=== PATIENT | male | born 1960 | race Caucasian/White ===

== ENCOUNTER 2017-05-11 17:14 | Emergency (ER) | payer OTHER ==
[2017-05-11 17:42] LABS: BASOPHIL COUNT 0.1 K/uL (0-0.1); EOSINOPHIL (%) 1.3 % (0-5); EOSINOPHIL COUNT 0.2 K/uL (0-0.3); HEMATOCRIT 41.9 % (38.0-50.0); IMMATURE GRANULOCYTE (%) 1.8 % (0.0-0.7); IMMATURE GRANULOCYTE COUNT 0.3 K/uL; INSTRUMENT ABS NEUTROPHIL CT 11.8 K/uL; MCH 31.2 PG (29.0-34.0); MCHC 34.4 G/DL (30.0-36.0); MCV 90.7 FL (86-99); MEAN PLAT.VOLUME 10.6 uM^3 (9.0-12.4); MONOCYTE (%) 7.1 % (3-12); MONOCYTE COUNT 1.2 K/uL (0-0.8); NEUTROPHIL COUNT 11.8 K/uL (1.8-6.4); PLATELET COUNT 333 K/uL (156-360); RBC DIS.WIDTH-CV 14.8 % (11.8-14.6); RBC DIS.WIDTH-SD 49.1 % (39-53); RED BLOOD COUNT 4.62 M/uL (4.00-5.50); WHITE BLOOD COUNT 16.5 K/uL (4.1-10.2)
[2017-05-11 18:32] LABS: AMYLASE 67 IU/L (1-118); CHLORIDE 105 mEq/L (99-109); POTASSIUM 3.8 mEq/L (3.7-5.4); SODIUM 136 mEq/L (136-147)
[2017-05-11 18:34] LABS: GLUCOSE 113 mg/dL (70-99)
[2017-05-11 18:35] LABS: ANION GAP 11 MEQ/L (2-14)
[2017-05-11 18:37] LABS: SERUM ETHYL ALCOHOL < 10 mg/dL
[2017-05-11 18:38] LABS: GFR ESTIMATE (CALCULATED) > 59 mL/min/; UREA NITROGEN (BUN) 18 mg/dL (9-23)
[2017-05-11 18:41] LABS: LIPASE 17 U/L (1.0-51.0)
[2017-05-11] MEDS ORDERED: PERCOCET 5/31 TABLET PO (18:53)
== END 2017-05-11 22:02 | disposition short-term general hospital (02) ==
LOC: TRA 17:14
PROVIDERS: Emergency Medicine
PROC: 0QS7XZZ Reposition Left Upper Femur, External Approach (ICD-10-PCS; principal; 2017-05-11)
DX: S72.092A Other fracture of head and neck of left femur, initial encounter for closed fracture (principal); S32.442A Displaced fracture of posterior column [ilioischial] of left acetabulum, initial encounter for closed fracture; S42.021A Displaced fracture of shaft of right clavicle, initial encounter for closed fracture; S22.31XA Fracture of one rib, right side, initial encounter for closed fracture; V23.4XXA Motorcycle driver injured in collision with car, pick-up truck or van in traffic accident, initial encounter; Y92.410 Unspecified street and highway as the place of occurrence of the external cause; I10 Essential (primary) hypertension; K44.9 Diaphragmatic hernia without obstruction or gangrene; F17.200 Nicotine dependence, unspecified, uncomplicated
CPT/HCPCS: 70450; 71010; 71260; 72125; 72192; 73501; 73502; 74177; 80048; 81003; 82150; 83690; 85025; 86900; 86901; 99281; 99285; G0480; J2405; J3010

== ENCOUNTER 2017-05-16 15:01 | Inpatient (IN) | payer OTHER ==
[~2017-05-16] VITALS: Ht 190.5 cm; Wt 81.2 kg
[~2017-05-16 15:01] MED LIST: PERCOCET 5/31 TABLET PO
[2017-05-16 15:47] VITALS: BP 142/89
[2017-05-16] MEDS ORDERED: ACETAMINOPHEN325 M1 PO (16:01)
[2017-05-16] MEDS ORDERED: LO-DOSE ASPIRIN81 M2 PO (16:02)
[2017-05-16] MEDS ORDERED: BACLOFEN10 MG PO (16:02)
[2017-05-16] MEDS ORDERED: NICODERM CQ1 EAC1 TD (16:03)
[2017-05-16] MEDS ORDERED: COLACE100 MG PO (16:03)
[2017-05-16] MEDS ORDERED: POLYETHYLENE GL17 GM PO (16:04)
[2017-05-16] MEDS ORDERED: SENNA8.6 MG PO (16:06)
[2017-05-16] MEDS ORDERED: METOPROLOL TART25 MG PO (16:06)
[2017-05-16 18:12] LABS: MCHC 34.1 G/DL (30.0-36.0); MCV 90.9 FL (86-99); MEAN PLAT.VOLUME 9.1 uM^3 (9.0-12.4); PLATELET COUNT 369 K/uL (156-360); RBC DIS.WIDTH-CV 14.6 % (11.8-14.6); RBC DIS.WIDTH-SD 48.7 % (39-53); RED BLOOD COUNT 4.29 M/uL (4.00-5.50); WHITE BLOOD COUNT 10.5 K/uL (4.1-10.2)
[2017-05-16 18:36] LABS: ALKALINE PHOSPHATASE 94 IU/L (3-129); ANION GAP 8 MEQ/L (2-14); CHLORIDE 101 MEQ/L (99-109); GFR ESTIMATE (CALCULATED) > 59 mL/min/; GLUCOSE 147 mg/dL (70-99); POTASSIUM 4.1 MEQ/L (3.7-5.4); SAMPLE HEMOLYSIS CHECK 0; SAMPLE ICTERIC CHECK 0; SAMPLE LIPEMIA CHECK 0; SODIUM 137 MEQ/L (136-147); UREA NITROGEN (BUN) 18 mg/dL (9-23)
[2017-05-17 00:15] VITALS: BP 120/72
[2017-05-17 04:44] VITALS: BP 116/81
[2017-05-17 15:20] VITALS: BP 132/92
[2017-05-18 05:04] VITALS: BP 111/77
[2017-05-18 08:40] VITALS: BP 114/83
[2017-05-18 15:12] VITALS: BP 116/84
[2017-05-19 04:26] VITALS: BP 103/64
[2017-05-19 15:06] VITALS: BP 128/84
[2017-05-20 05:50] VITALS: BP 117/82
[2017-05-20 08:15] VITALS: BP 108/70
[2017-05-20 15:49] VITALS: BP 126/76
[2017-05-21 05:28] VITALS: BP 120/76
[2017-05-22 05:40] VITALS: BP 119/79
[2017-05-22 06:46] LABS: ANION GAP 7 MEQ/L (2-14); CHLORIDE 105 MEQ/L (99-109); GFR ESTIMATE (CALCULATED) > 59 mL/min/; GLUCOSE 84 mg/dL (70-99); POTASSIUM 4.8 MEQ/L (3.7-5.4); SAMPLE HEMOLYSIS CHECK 2; SAMPLE ICTERIC CHECK 0; SAMPLE LIPEMIA CHECK 0; SODIUM 138 MEQ/L (136-147); TOTAL BILIRUBIN 0.9 MG/DL (0.0-1.0); UREA NITROGEN (BUN) 11 mg/dL (9-23)
[2017-05-22 06:51] LABS: ALKALINE PHOSPHATASE 122 IU/L (3-129)
[2017-05-22 07:05] LABS: HEMATOCRIT 32.2 % (38.0-50.0); MCH 30.6 PG (29.0-34.0); MCHC 33.9 G/DL (30.0-36.0); MCV 90.4 FL (86-99); MEAN PLAT.VOLUME 8.5 uM^3 (9.0-12.4); PLATELET COUNT 476 K/uL (156-360); RBC DIS.WIDTH-CV 14.6 % (11.8-14.6); RBC DIS.WIDTH-SD 48.6 % (39-53); RED BLOOD COUNT 3.56 M/uL (4.00-5.50); WHITE BLOOD COUNT 7.2 K/uL (4.1-10.2)
[2017-05-22 15:11] VITALS: BP 118/74
[2017-05-22] MEDS ORDERED: LO-DOSE ASPIRIN81 M2 PO (19:19)
[2017-05-22] MEDS ORDERED: SENNA8.6 MG PO (19:19)
[2017-05-22] MEDS ORDERED: PERCOCET 5/31 TABLET PO (19:19)
[2017-05-22] MEDS ORDERED: COLACE100 MG PO (19:19)
[2017-05-22] MEDS ORDERED: THERAGRAN1 TABLET PO (19:19)
[2017-05-22] MEDS ORDERED: NICODERM CQ1 EAC1 TD (19:19)
[2017-05-22] MEDS ORDERED: METOPROLOL TART25 MG PO (19:19)
[2017-05-23 05:34] VITALS: BP 132/75
== END 2017-05-23 14:34 | disposition home health service (06) | DRG 561 ==
LOC: 3WEST 15:01
PROVIDERS: Physical Medicine & Rehabilitation Pain Medicine; Psychiatry & Neurology Neurology
PROC: F07M0ZZ Range of Motion and Joint Mobility Treatment of Musculoskeletal System - Whole Body (ICD-10-PCS; principal; 2017-05-16)
DX: S32.402D Unspecified fracture of left acetabulum, subsequent encounter for fracture with routine healing (principal); S73.005D Unspecified dislocation of left hip, subsequent encounter; S22.39XD Fracture of one rib, unspecified side, subsequent encounter for fracture with routine healing; S42.001D Fracture of unspecified part of right clavicle, subsequent encounter for fracture with routine healing; R26.2 Difficulty in walking, not elsewhere classified; M25.552 Pain in left hip; R50.9 Fever, unspecified; E27.8 Other specified disorders of adrenal gland; F17.210 Nicotine dependence, cigarettes, uncomplicated; I10 Essential (primary) hypertension; K44.9 Diaphragmatic hernia without obstruction or gangrene; M19.90 Unspecified osteoarthritis, unspecified site; I70.209 Unspecified atherosclerosis of native arteries of extremities, unspecified extremity; I70.0 Atherosclerosis of aorta; Z79.82 Long term (current) use of aspirin
CPT/HCPCS: 80053; 85027; 97110 GO; 97530 GP; J1650

== ENCOUNTER → 2018-04-23 | Outpatient (CLI) | payer OTHER ==
[~2018-04-23] VITALS: Ht 193 cm; Wt 84.4 kg
[~2018-04-23] MED LIST changes: +ACETAMINOPHEN325 M1 PO; +BACLOFEN10 MG PO; +COLACE100 MG PO; +LO-DOSE ASPIRIN81 M2 PO; +METOPROLOL TART25 MG PO; +NICODERM CQ1 EAC1 TD; +POLYETHYLENE GL17 GM PO; +SENNA8.6 MG PO; +THERAGRAN1 TABLET PO
== END | disposition home or self-care (01) ==
LOC: AMB 04-22 09:30
DX: K22.2 Esophageal obstruction (principal); K44.9 Diaphragmatic hernia without obstruction or gangrene; I10 Essential (primary) hypertension; Z82.49 Family history of ischemic heart disease and other diseases of the circulatory system; Z83.3 Family history of diabetes mellitus; F17.200 Nicotine dependence, unspecified, uncomplicated
CPT/HCPCS: 88305; 88342 TC; 93005; J3301

== ENCOUNTER → 2018-05-08 | Outpatient (CLI) | payer BC, OTHER ==
[~2018-05-08] VITALS: Ht 193 cm; Wt 84.4 kg
[~2018-05-08] MED LIST changes: +LOPRESSOR25 MG PO; +PRILOSEC20 MG PO
== END | disposition home or self-care (01) ==
LOC: AMB 13:15
DX: K22.2 Esophageal obstruction (principal); K44.9 Diaphragmatic hernia without obstruction or gangrene; I10 Essential (primary) hypertension; Z87.891 Personal history of nicotine dependence
CPT/HCPCS: J2405; J7643

== ENCOUNTER → 2018-05-23 | Outpatient (CLI) | payer BC, OTHER ==
[~2018-05-23] VITALS: Ht 193 cm; Wt 83.9 kg
== END | disposition home or self-care (01) ==
LOC: AMB 08:38
DX: K22.2 Esophageal obstruction (principal); K44.9 Diaphragmatic hernia without obstruction or gangrene; I10 Essential (primary) hypertension; F17.200 Nicotine dependence, unspecified, uncomplicated; Z83.3 Family history of diabetes mellitus; Z82.49 Family history of ischemic heart disease and other diseases of the circulatory system
CPT/HCPCS: J0330; J3301

== ENCOUNTER → 2018-06-27 | Outpatient (CLI) | payer BC, OTHER ==
[~2018-06-27] VITALS: Ht 193 cm; Wt 83.9 kg
== END | disposition home or self-care (01) ==
LOC: AMB 09:10
PROC: 0D758ZZ Dilation of Esophagus, Via Natural or Artificial Opening Endoscopic (ICD-10-PCS; principal; 2018-06-27)
DX: K22.2 Esophageal obstruction (principal); K44.9 Diaphragmatic hernia without obstruction or gangrene; K21.9 Gastro-esophageal reflux disease without esophagitis; I10 Essential (primary) hypertension; Z87.891 Personal history of nicotine dependence
CPT/HCPCS: J2250; J2405